=== PATIENT | male | born 1985 | race Caucasian/White ===

== ENCOUNTER 2018-01-31 17:59 | Emergency (ER) | payer MEDICAID ==
--- NOTE | 2018-01-31 18:37 | ED Physician Documentation ---
PD HPI HEENT - Stated complaint Stated Complaint: MOUTH PX - Chief complaint Chief Complaint: Heent - History obtained from History obtained from: Patient - History of Present Illness Timing - onset: How many days ago (several) Timing - duration: Days Timing - details: Gradual onset, Still present Location: Tooth (upper frontal) Associated symptoms: No: Fever, Congestion, Rhinorrhea Similar symptoms before: Diagnosis (dental infections) Recently seen: Not recently seen Review of Systems Constitutional: denies: Fever Nose: denies: Rhinorrhea / runny nose, Congestion Throat: reports: Dental pain / toothache. denies: Oral lesions / sores, Sore throat Respiratory: denies: Cough PD PAST MEDICAL HISTORY - Past Medical History Past Medical History: No - Past Surgical History Past Surgical History: Yes General: Other - Present Medications Home Medications: Ambulatory Orders Medication Instructions Recorded Confirmed Clindamycin HCl [Cleocin HCl] 300 mg PO TID #20 capsule 01/31/18 HYDROcod/ACETAM 5/325 [[place] 5/325] 1 tab PO Q6H PRN #15 tablet 01/31/18 - Allergies Allergies/Adverse Reactions: Allergies Allergy/AdvReac Type Severity Reaction Status Date / Time Penicillins Allergy Anaphylaxis Verified 01/31/18 18:04 - Social History Does the pt smoke?: Yes Smoking Status: Current every day smoker Does the pt drink ETOH?: Yes Does the pt have substance abuse?: No - Immunizations Immunizations are current?: Yes PD ED PE NORMAL - Vitals Vital signs reviewed: Yes - General General: Alert and oriented X 3, Well developed/nourished - HEENT HEENT: Pharynx benign. No: Dentition benign (poor dentition overall, with most molars previously extracted. Frontal upper teeth decayed significantly, with tender and swelling of gum. ) - Neck Neck: Supple, no meningeal sign, No adenopathy - Cardiac Cardiac: RRR, No murmur - Respiratory Respiratory: Clear bilaterally - Derm Derm: Normal color, Warm and dry, No rash - Neuro Neuro: Alert and oriented X 3, No motor deficit, Normal speech Results - Vitals Vitals: Oxygen O2 Source Room air PD MEDICAL DECISION MAKING - ED course Complexity details: considered differential, d/w patient - Sepsis Event Vital Signs: Oxygen O2 Source Room air Departure - Departure Disposition: 01 Home, Self Care Clinical Impression: Infected dental caries Condition: Stable Record reviewed to determine appropriate education?: Yes Instructions: ED Tooth Pain Follow-Up: [facility] [Provider Group] Prescriptions: Clindamycin HCl [Cleocin HCl] 300 mg PO TID #20 capsule HYDROcod/ACETAM 5/325 [[place] 5/325] 1 tab PO Q6H PRN #15 tablet PRN Reason: Pain Comments: Rinse the gums and teeth with antiseptic mouthwash 2 or 3 times a day. Continue some ibuprofen 400-600 mg 2 or 3 times a day for anti-inflammatory effect. Use Tylenol or hydrocodone if needed for pain. Clindamycin antibiotic 3 times a day for a week for the infection. Call the [facility] clinic in your looking for the dental clinic in [place] to make an appointment for more definitive care of the teeth. The above treatment will take care of the current infection and inflammation but will be prone to recurrence until the teeth are fixed. Discharge Date/Time: 01/31/18 19:11
[2018-01-31] MEDS ORDERED: traMADol 50 MG TABLET PO STA (18:54)
[2018-01-31] MEDS ORDERED: CLINDAMYCIN 150 MG CAPSULE PO STA (18:54)
[2018-01-31 19:12] VITALS: BP 149/91
== END 2018-01-31 19:11 | disposition home or self-care (01) ==
LOC: ED 17:59
DX: K04.7 Periapical abscess without sinus (principal); F17.200 Nicotine dependence, unspecified, uncomplicated
CPT/HCPCS: 99283; A9270

== ENCOUNTER 2018-04-14 16:20 | Emergency (ER) | payer MEDICAID ==
[2018-04-14 16:36] VITALS: BP 148/86
[2018-04-14] MEDS ORDERED: LIDOCAINE PATCH 5% TOP STA (17:41)
[2018-04-14] MEDS ORDERED: DEXAMETHASONE 10 MG/ML VIAL PO STA (17:41)
--- NOTE | 2018-04-14 17:44 | ED Physician Documentation ---
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 to ED today for low left back pain rad down LLE to foot no numbness or weakness no fever no recent surgery dental work IV IM meds no abd pain no hematuria no incont Review of Systems Constitutional: denies: Fever, Chills Cardiac: denies: Chest pain / pressure : denies: Dysuria, Unable to Void, Incontinent, Hematuria Musculoskeletal: reports: Back pain, Extremity pain Neurologic: denies: Focal weakness, Numbness Endocrine: denies: Easy bruising / bleeding Immunocompromised: denies: Immunocompromised PD PAST MEDICAL HISTORY - Past Medical History Past Medical History: No - Past Surgical History Past Surgical History: Yes General: Other - Present Medications Home Medications: Ambulatory Orders Medication Instructions Recorded Confirmed Clindamycin HCl [Cleocin HCl] 300 mg PO TID #20 capsule 01/31/18 HYDROcod/ACETAM 5/325 [[place] 5/325] 1 tab PO Q6H PRN #15 tablet 01/31/18 Cyclobenzaprine [Flexeril] 10 mg PO TID PRN #20 tablet 04/14/18 Lidocaine Patch 5% [Lidoderm Patch] 1 patch TOP DAILY PRN #10 patch 04/14/18 predniSONE [Deltasone] 20 mg PO [id number] #21 tablet 04/14/18 - Allergies Allergies/Adverse Reactions: Allergies Allergy/AdvReac Type Severity Reaction Status Date / Time Penicillins Allergy Anaphylaxis Verified 04/14/18 16:36 - Social History Does the pt smoke?: Yes Smoking Status: Current every day smoker Does the pt drink ETOH?: Yes Does the pt have substance abuse?: No - Immunizations Immunizations are current?: Yes - POLST Patient has POLST: No PD ED PE NORMAL - Vitals Vital signs reviewed: Yes - General General: Alert and oriented X 3 - Cardiac Cardiac: RRR - Respiratory Respiratory: No respiratory distress - Abdomen Abdomen: Soft, Non tender, Other (no pulsatile mass) - Back Back: No spinal TTP (and no redness swelling warmth), Other - Derm Derm: Normal color - Neuro Neuro: Alert and oriented X 3, Other (denies saddle anesthesia, hip flexion knee ext foot dorsi plantar great toe ext 5/5, nl sensation, + SLR LLE, patellar DTR 1+/4 taniya, no ankle clonus) Eye Opening: Spontaneous Motor: Obeys Commands Verbal: Oriented GCS Score: 15 Results - Vitals Vitals: Vital Signs - 24 hr 04/14/18 16:31 Temperature 36.8 C Heart Rate 90 Respiratory 16 Rate Blood Pressure 148/86 H O2 Saturation 99 Oxygen O2 Source Room air Departure - Departure Disposition: Home, Self Care Clinical Impression: Back pain Qualifiers: Back pain location: low back pain Chronicity: acute Back pain laterality: left Sciatica presence: with sciatica Sciatica laterality: sciatica of left side Qualified Code(s): M54.42 - Lumbago with sciatica, left side Sciatica Qualifiers: Laterality: left Qualified Code(s): M54.32 - Sciatica, left side Instructions: ED Sciatica, ED Neck Back Pain General Prescriptions: Cyclobenzaprine [Flexeril] 10 mg PO TID PRN #20 tablet PRN Reason: Spasms Lidocaine Patch 5% [Lidoderm Patch] 1 patch TOP DAILY PRN #10 patch PRN Reason: pain predniSONE [Deltasone] 20 mg PO [id number] #21 tablet Comments: Your history and exam suggest sciatica This may be due to a herniated disk. I have prescribed steroid which work by decreasing the nerve inflammation to your leg. And lidocaine patches which you can apply to your back for up to 12 hr a day And flexeril which is a muscle relaxant which you can take every 8 hr (but it might make you drowsy so you might want to just take it at bedtime) Please limit lifting - no more than 10 lbs - for the next 2 weeks If the symptoms persist you may need a MRI but that would need to be approved by insurance first Return if worse as we discussed Forms: Activity restrictions
== END 2018-04-14 18:16 | disposition home or self-care (01) ==
LOC: ED 16:20
DX: M54.32 Sciatica, left side (principal); F17.200 Nicotine dependence, unspecified, uncomplicated
CPT/HCPCS: 99283; A9270

== ENCOUNTER 2018-04-28 17:38 | Emergency (ER) | payer MEDICAID ==
[2018-04-28] MEDS ORDERED: predniSONE 20 MG TABLET PO STA (18:49)
--- NOTE | 2018-04-28 19:09 | ED Physician Documentation ---
History of Present Illness - Stated complaint Stated Complaint: FACE SWELLING - Chief complaint Chief Complaint: Allergic Rx - History obtained from History obtained from: Patient - History of Present Illness Timing: How many days ago (2) Pain level max: 0 Pain level now: 0 Improved by: nothing Worsened by: nothing - Additonal information Additional information: 32-year-old male who presents to the emergency department with facial swelling, lip swelling and diffuse urticaria for the past 2 days. Denies any new medications, soaps, detergents, clothes, foods, mattresses etc. Denies any difficulty breathing Patient states that he takes no medications at home Review of Systems Constitutional: denies: Fever, Chills Cardiac: denies: Chest pain / pressure Respiratory: denies: Cough, Wheezing GI: denies: Abdominal Pain, Vomiting, Diarrhea Musculoskeletal: denies: Neck pain Neurologic: denies: Headache PD PAST MEDICAL HISTORY - Past Medical History Past Medical History: No - Past Surgical History Past Surgical History: Yes General: Other - Present Medications Home Medications: Ambulatory Orders Medication Instructions Recorded Confirmed Clindamycin HCl [Cleocin HCl] 300 mg PO TID #20 capsule 01/31/18 HYDROcod/ACETAM 5/325 [[place] 5/325] 1 tab PO Q6H PRN #15 tablet 01/31/18 Cyclobenzaprine [Flexeril] 10 mg PO TID PRN #20 tablet 04/14/18 Lidocaine Patch 5% [Lidoderm Patch] 1 patch TOP DAILY PRN #10 patch 04/14/18 predniSONE [Deltasone] 20 mg PO [id number] #21 tablet 04/14/18 predniSONE [Deltasone] 10 mg PO [id number] #42 tab 04/28/18 - Allergies Allergies/Adverse Reactions: Allergies Allergy/AdvReac Type Severity Reaction Status Date / Time Penicillins Allergy Anaphylaxis Verified 04/28/18 17:47 - Living Situation Living Situation: reports: With family Living Arrangement: reports: At home - Social History Does the pt smoke?: Yes Smoking Status: Current every day smoker Does the pt drink ETOH?: Yes Does the pt have substance abuse?: No - Immunizations Immunizations are current?: Yes - POLST Patient has POLST: No PD ED PE NORMAL - Vitals Vital signs reviewed: Yes - General General: Alert and oriented X 3, No acute distress, Well developed/nourished - HEENT HEENT: PERRL, Moist mucous membranes, Pharynx benign, Other (mild lip swelling) - Neck Neck: Supple, no meningeal sign - Cardiac Cardiac: RRR - Respiratory Respiratory: No respiratory distress, Clear bilaterally, Other (no stridor or wheezing) - Abdomen Abdomen: Soft, Non tender, Non distended - Derm Derm: Warm and dry, Other (mild diffuse urticaria) - Neuro Neuro: Alert and oriented X 3 - Psych Psych: Normal mood, Normal affect Results - Vitals Vitals: Oxygen O2 Source Room air PD MEDICAL DECISION MAKING - ED course Complexity details: considered differential, d/w patient ED course: 32 year old male with allergic reaction of unclear etiology. will place on steroids and see how he progresses. No wheezing, stridor or anaphylaxis. Patient counseled regarding signs and symptoms for which I believe and urgent re-evaluation would be necessary. Patient with good understanding of and agreement to plan and is comfortable going home at this time This document was made in part using voice recognition software. While efforts are made to proofread this document, sound alike and grammatical errors may occur. Departure - Departure Disposition: 01 Home, Self Care Clinical Impression: Urticaria Condition: Good Instructions: ED Allergic Reaction General Other Follow-Up: your,doctor in 1 week [Other] Prescriptions: predniSONE [Deltasone] 10 mg PO [id number] #42 tab Comments: Take the steroids as prescribed. Return if you worsen. The cause of your allergic reaction is unclear today. Discharge Date/Time: 04/28/18 19:24
[2018-04-28 19:25] VITALS: BP 154/90
== END 2018-04-28 19:24 | disposition home or self-care (01) ==
LOC: ED 17:38
DX: L50.9 Urticaria, unspecified (principal); F17.200 Nicotine dependence, unspecified, uncomplicated
CPT/HCPCS: 99283; J7512

== ENCOUNTER 2018-06-12 08:00 | Outpatient (CLI) | payer MEDICAID ==
[2018-06-13 12:58] LABS: HIV AG/AB 4TH GEN NON-REACTIVE (NON-REACTIVE)
[2018-06-13 13:22] LABS: HEPATITIS C ANTIBODY NON-REACTIVE (NON-REACTIVE)
[2018-06-14 13:26] LABS: HSV 1 IGG TYPE SPECIFIC AB 39.7 index
== END 2018-06-12 23:59 | disposition home or self-care (01) ==
LOC: LAB.WCP 08:00
PROVIDERS: ATTEND Family Medicine
DX: Z20.2 Contact with and (suspected) exposure to infections with a predominantly sexual mode of transmission (principal)
CPT/HCPCS: 36415; 81599; 86592; 86695; 86696; 86803; 87389; 87491; 87591

== ENCOUNTER 2018-08-26 15:34 | Emergency (ER) | payer MEDICAID ==
[2018-08-26 15:57] VITALS: BP 145/103
== END 2018-08-26 17:05 | disposition left against medical advice (07) ==
LOC: ED 15:34
DX: R05 Cough (principal); Z53.21 Procedure and treatment not carried out due to patient leaving prior to being seen by health care provider
CPT/HCPCS: 87070; 87430